=== PATIENT | male | born 1960 | race African-American/Black ===

== ENCOUNTER 2017-06-01 11:41 | Emergency (ER) | payer OTHER ==
[~2017-06-01] VITALS: Ht 182.9 cm; Wt 108.6 kg
[~2017-06-01 11:41] MED LIST: LOT105
[2017-06-01 11:51] VITALS: BP 137/94
== END 2017-06-01 16:00 | disposition left against medical advice (07) ==
LOC: ER 13:25
DX: Z53.21 Procedure and treatment not carried out due to patient leaving prior to being seen by health care provider (principal)

== ENCOUNTER 2019-11-09 21:58 | Inpatient (IN) | payer OTHER ==
[~2019-11-09] VITALS: Ht 182.9 cm; Wt 106.6 kg
[~2019-11-09 21:58] MED LIST changes: -LOT105; +LOT105 PO
[2019-11-09] MEDS ORDERED: DILTIAZEM HCL 5MG/ML 5ML VIAL IV ONE ×2 (22:15→22:17)
[2019-11-09] MEDS ORDERED: ASPIRIN 81MG TABLET PO ONE (22:15)
[2019-11-09 22:43] LABS: BASOPHILS % 0.5 % (0.0-2.0); EOSINOPHILS % 0.5 % (0.0-5.0); HEMATOCRIT. 42.4 % (42.0-52.0); HEMOGLOBIN. 14.7 g/dL (14.0-18.0); LYMPHOCYTES % 22.1 % (20.0-50.0); MEAN CORPUSCULAR HEMOGLOBIN 34.4 pg (28.0-32.0); MEAN CORPUSCULAR VOLUME 99.1 fL (80.0-94.0); MEAN PLATELET VOLUME 10.1 fl (7.4-10.4); NEUTROPHILS % 71.9 % (40.0-76.0); PLATELET 233 x1000/uL (130-400); RED BLOOD CELL COUNT 4.27 mill/uL (4.7-6.1); RED CELL DISTRIBUTION WIDTH 12.9 % (11.6-14.6)
[2019-11-09 22:50] LABS: CHLORIDE 102 mEq/L (98-107)
[2019-11-09 22:54] LABS: ETHANOL BLOOD 42 mg/dL
[2019-11-09 22:55] LABS: D-DIMER 2.4 mg/L FEU (<0.50); PARTIAL THROMBOPLASTIN TIME 22.9 sec (23.4-31.0); PROTHROMBIN TIME 10.7 sec (9.6-11.0)
[2019-11-09] MEDS ORDERED: NITROGLYCERIN OINT 1GM/INCH UDPKT TD ONE (23:30)
[2019-11-09] MEDS ORDERED: CEFTRIAXONE 1 G PREMIX 50 ML IV ONE (23:30)
[2019-11-09] MEDS ORDERED: FUROSEMIDE 40MG/4ML VIAL IV ONE (23:30)
[2019-11-09] MEDS ORDERED: POTASSIUM CHLORIDE 20MEQ TABLET SR PO ONE (23:30)
[2019-11-09] MEDS ORDERED: ENOXAPARIN 120MG/0.8ML SYR SUBCUT ONE (23:30)
[2019-11-09] MEDS ORDERED: AZITHROMYCIN 500 MG in DEXT 5% WATER 250 ML IV ONE (23:30)
[2019-11-10 00:14] LABS: CLARITY URINE CLEAR (CLEAR); COLOR URINE YELLOW (YELLOW); KETONES URINE NEGATIVE (NEGATIVE); LEUKOCYTE ESTERASE URINE NEGATIVE (NEGATIVE); NITRITE URINE NEGATIVE (NEGATIVE); OCCULT BLOOD URINE NEGATIVE (NEGATIVE); PH URINE 6.5 (4.5-8.0); PROTEIN URINE TRACE (NEGATIVE); SPECIFIC GRAVITY URINE 1.009 (1.005-1.030)
[2019-11-10 00:28] LABS: *AMPHETAMINES SCREEN URINE NEGATIVE (NEGATIVE); *BARBITURATES SCREEN URINE NEGATIVE (NEGATIVE); *BENZODIAZEPINES SCREEN URINE NEGATIVE (NEGATIVE); *COCAINE SCREEN URINE NEGATIVE (NEGATIVE); METHADONE URINE SCREEN NEGATIVE (NEGATIVE)
[2019-11-10 00:29] LABS: CANNABINOID URINE SCREEN NEGATIVE (NEGATIVE); OPIATES URINE SCREEN NEGATIVE (NEGATIVE); PHENCYCLIDINE URINE SCREEN NEGATIVE (NEGATIVE)
[2019-11-10] MEDS ORDERED: DILTIAZEM HCL 5MG/ML 5ML VIAL IV ONE (00:30)
[2019-11-10] MEDS ORDERED: DILTIAZEM HCL 60MG TABLET PO ONE (01:00)
[2019-11-10 05:30] VITALS: BP 135/90
[2019-11-10] MEDS ORDERED: IOHEXOL-350 100 ML BOTTLE ONE (05:50)
[2019-11-10] MEDS ORDERED: HYDR25TA PO (06:21)
[2019-11-10] MEDS ORDERED: POTA8CAP20 PO (06:21)
[2019-11-10] MEDS ORDERED: ASPI-1497 PO (06:21)
[2019-11-10 08:00] VITALS: BP 134/91
[2019-11-10] MEDS ORDERED: ONDANSETRON HCL 4MG/2ML INJ IV PRN (09:15)
[2019-11-10] MEDS ORDERED: ACETAMINOPHEN 325MG TABLET PO PRN (09:15)
[2019-11-10 10:53] LABS: CHLORIDE 103 mEq/L (98-107)
[2019-11-10 10:54] LABS: BASOPHILS % 0.4 % (0.0-2.0); EOSINOPHILS % 0.4 % (0.0-5.0); HEMOGLOBIN. 13.5 g/dL (14.0-18.0); LYMPHOCYTES % 23.1 % (20.0-50.0); MEAN CORPUSCULAR HEMOGLOBIN 34.5 pg (28.0-32.0); MEAN CORPUSCULAR VOLUME 99.6 fL (80.0-94.0); MEAN PLATELET VOLUME 9.6 fl (7.4-10.4); MONOCYTES % 7.1 % (2.0-8.0); PLATELET 221 x1000/uL (130-400); RED BLOOD CELL COUNT 3.92 mill/uL (4.7-6.1)
[2019-11-10] MEDS: AMLODIPINE 10MG TABLET PO SCH (11:23)
[2019-11-10 12:00] VITALS: BP 150/96
[2019-11-10] MEDS ORDERED: FUROSEMIDE 40MG/4ML VIAL IVP SCH (15:15)
[2019-11-10 16:00] VITALS: BP 151/64
[2019-11-10 20:00] VITALS: BP 145/104
[2019-11-10 20:44] LABS: CREATINE KINASE MB FRACTION 4.7 ng/mL (0.5-3.6)
[2019-11-10] MEDS: CEFTRIAXONE 1 G PREMIX 50 ML IV SCH (23:09)
[2019-11-10 23:58] LABS: CREATINE KINASE MB FRACTION 4.2 ng/mL (0.5-3.6)
[2019-11-11 00:06] VITALS: BP 133/82
[2019-11-11] MEDS: AZITHROMYCIN 500 MG in DEXT 5% WATER 250 ML IV SCH (02:03)
[2019-11-11 04:40] VITALS: BP 117/84
[2019-11-11 06:01] LABS: BASOPHILS % 0.2 % (0.0-2.0); EOSINOPHILS % 0.5 % (0.0-5.0); HEMATOCRIT. 38.5 % (42.0-52.0); HEMOGLOBIN. 13.2 g/dL (14.0-18.0); LYMPHOCYTES % 18.2 % (20.0-50.0); MEAN CORPUSCULAR HEMOGLOBIN 33.9 pg (28.0-32.0); MEAN CORPUSCULAR VOLUME 98.5 fL (80.0-94.0); MEAN PLATELET VOLUME 9.7 fl (7.4-10.4); MONOCYTES % 9.5 % (2.0-8.0); NEUTROPHILS % 71.6 % (40.0-76.0); PLATELET 206 x1000/uL (130-400); RED CELL DISTRIBUTION WIDTH 12.6 % (11.6-14.6)
[2019-11-11 06:19] LABS: CHLORIDE 103 mEq/L (98-107)
[2019-11-11 08:00] VITALS: BP_SYST 105; BP_SYST 133; BP_DIAS 79; BP_DIAS 90
[2019-11-11] MEDS: AMLODIPINE 10MG TABLET PO SCH (09:05)
[2019-11-11] MEDS ORDERED: POTASSIUM CHLORIDE 20MEQ TABLET SR PO NR (10:00)
[2019-11-11] MEDS ORDERED: FUROSEMIDE 40MG/4ML VIAL IVP NR (10:30)
[2019-11-11 12:00] VITALS: BP 128/86
[2019-11-11 16:00] VITALS: BP 127/76
[2019-11-11 20:00] VITALS: BP 139/88
[2019-11-11] MEDS ORDERED: DILTIAZEM HCL 5MG/ML 5ML VIAL IV PRN (20:30)
[2019-11-11] MEDS ORDERED: DILTIAZEM HCL 5MG/ML 5ML VIAL IV SCH (20:30)
[2019-11-11] MEDS ORDERED: DILTIAZEM HCL 30MG TABLET PO SCH (20:30)
[2019-11-11] MEDS: CEFTRIAXONE 1 G PREMIX 50 ML IV SCH (22:49)
[2019-11-12] VITALS (7 sets, daily range): BP systolic 20–118; BP diastolic 61–118
[2019-11-12] MEDS: DILTIAZEM HCL 30MG TABLET PO SCH ×4 (00:05→18:11)
[2019-11-12] MEDS: AZITHROMYCIN 500 MG in DEXT 5% WATER 250 ML IV SCH (01:59)
[2019-11-12] MEDS: AMLODIPINE 10MG TABLET PO SCH (09:00)
[2019-11-13] MEDS ORDERED: AZITHROMYCIN 500 MG TABLET PO SCH (09:00)
== END 2019-11-12 19:40 | disposition home or self-care (01) | DRG 871 ==
LOC: ER 21:58 → 7WST 11-10 00:08 → ENRESERV 11-10 04:45 → 7WST 11-10 05:54 → 6WST 11-10 21:30
PROVIDERS: ADMIT Internal Medicine; ATTEND Internal Medicine
DX: A41.9 Sepsis, unspecified organism (principal); I50.31 Acute diastolic (congestive) heart failure; J18.9 Pneumonia, unspecified organism; J96.01 Acute respiratory failure with hypoxia; I47.1 Supraventricular tachycardia; E87.2 Acidosis; I11.0 Hypertensive heart disease with heart failure; E87.6 Hypokalemia; I48.0 Paroxysmal atrial fibrillation; I70.0 Atherosclerosis of aorta; R65.20 Severe sepsis without septic shock; Y90.2 Blood alcohol level of 40-59 mg/100 ml; R74.0 Nonspecific elevation of levels of transaminase and lactic acid dehydrogenase [LDH]; Z20.828 Contact with and (suspected) exposure to other viral communicable diseases; Z78.9 Other specified health status; Z87.891 Personal history of nicotine dependence; Z79.899 Other long term (current) drug therapy
CPT/HCPCS: 36415; 71045; 71275; 80048; 80053; 80305; 80320; 81003; 82550; 82553; 83605; 83735; 83880; 84443; 84484; 85025; 85379; 93005; 93306; 93970; 99291; J0456; J0696; J1650; J1940; J3490; J7060; Q9967; G0480; U0003-CS

== ENCOUNTER 2019-12-31 02:41 | Inpatient (IN) | payer OTHER ==
[~2019-12-31] VITALS: Ht 180.3 cm; Wt 106.6 kg
[~2019-12-31 02:41] MED LIST changes: +ASPI-1497 PO; +HYDR25TA PO; +POTA8CAP20 PO
[2019-12-31] MEDS ORDERED: ONDANSETRON HCL 4MG/2ML INJ IV STA (02:51)
[2019-12-31] MEDS ORDERED: FUROSEMIDE 40MG/4ML VIAL IV ONE (03:00)
[2019-12-31] MEDS ORDERED: NITROGLYCERIN OINT 1GM/INCH UDPKT TD ONE (03:00)
[2019-12-31 03:14] LABS: BASOPHILS % 0.3 % (0.0-2.0); HEMOGLOBIN. 15.4 g/dL (14.0-18.0); MEAN CORPUSCULAR HEMOGLOBIN 33.6 pg (28.0-32.0); MEAN CORPUSCULAR VOLUME 98.3 fL (80.0-94.0); MEAN PLATELET VOLUME 9.4 fl (7.4-10.4); MONOCYTES % 6.3 % (2.0-8.0); NEUTROPHILS % 48.4 % (40.0-76.0); PLATELET 257 x1000/uL (130-400); RED BLOOD CELL COUNT 4.58 mill/uL (4.7-6.1)
[2019-12-31 03:17] LABS: CHLORIDE 105 mEq/L (98-107)
[2019-12-31 03:20] LABS: BG BASE EXCESS 2.7 mmol/L (-2.0-2.0); BG CARBOXYHEMOGLOBIN 0.6 % (0.5-1.5); BG DEOXYHEMOGLOBIN 11.7 % (0.0-5.0); BG FRACTION INSPIRED OXYGEN 100; BG HCO3 ACT 32.3 mmol/L (22.0-26.0); BG METHEMOGLOBIN 0.3 % (0.0-1.5); BG OXYGEN SATURATION 88.2 % (92.0-98.5); BG OXYHEMOGLOBIN 87.4 % (94.0-97.0); BG PCO2 71.9 mmHg (35.0-45.0); BG SAMPLE SITE RIGHT RADIAL; BG VENT MODE MASK - NRB
[2019-12-31] MEDS ORDERED: NITROGLYCERIN 50MG PREMIX 250 ML IV ONE (03:44)
[2019-12-31] MEDS ORDERED: ACETAMINOPHEN 325MG TABLET PO PRN (08:15)
[2019-12-31] MEDS ORDERED: CLONIDINE 0.1MG TABLET PO PRN (08:15)
[2019-12-31] MEDS ORDERED: ONDANSETRON HCL 4MG/2ML INJ IV PRN (08:15)
[2019-12-31] MEDS ORDERED: ENOXAPARIN 40MG/0.4ML SYR SUBCUT SCH (09:00)
[2019-12-31] MEDS: POTASSIUM CHLORIDE 20MEQ TABLET SR PO SCH (09:41)
[2019-12-31 12:43] LABS: BG BASE EXCESS 3.7 mmol/L (-2.0-2.0); BG CARBOXYHEMOGLOBIN 0.3 % (0.5-1.5); BG DEOXYHEMOGLOBIN 6.7 % (0.0-5.0); BG METHEMOGLOBIN 0.2 % (0.0-1.5); BG OXYGEN SATURATION 93.3 % (92.0-98.5); BG OXYHEMOGLOBIN 92.8 % (94.0-97.0); BG PCO2 46.4 mmHg (35.0-45.0); BG PH 7.414 (7.350-7.450); BG PO2 69.3 mmHg (75.0-100.0); BG SAMPLE SITE RIGHT RADIAL; BG TOTAL HEMOGLOBIN 14.3 g/dL (12.0-18.0); BG VENT MODE NASAL CANNULA
[2019-12-31 17:30] VITALS: BP 165/110
[2019-12-31 17:41] LABS: CREATINE KINASE MB FRACTION 3.5 ng/mL (0.5-3.6)
[2019-12-31] MEDS ORDERED: FURO-152 MT (17:54)
[2019-12-31] MEDS ORDERED: POTA-9 MT (17:54)
[2019-12-31] MEDS ORDERED: DILT120T13 MT (17:54)
[2019-12-31] MEDS: FUROSEMIDE 40MG/4ML VIAL IVP SCH (18:11)
[2019-12-31 18:30] VITALS: BP 150/90
[2019-12-31 20:00] VITALS: BP 146/83
[2019-12-31] MEDS: LOSARTAN POTASSIUM 50 MG TABLET PO SCH (20:22)
[2019-12-31] MEDS: ENOXAPARIN 30MG/0.3ML SYR SUBCUT SCH (20:24)
[2020-01-01 00:20] VITALS: BP 135/86
[2020-01-01 04:00] VITALS: BP 124/87
[2020-01-01 05:54] LABS: BASOPHILS % 0.3 % (0.0-2.0); HEMATOCRIT. 37.6 % (42.0-52.0); HEMOGLOBIN. 12.9 g/dL (14.0-18.0); LYMPHOCYTES % 24.5 % (20.0-50.0); MEAN CORPUSCULAR HEMOGLOBIN 33.7 pg (28.0-32.0); MEAN CORPUSCULAR VOLUME 98.3 fL (80.0-94.0); MEAN PLATELET VOLUME 9.9 fl (7.4-10.4); MONOCYTES % 8.4 % (2.0-8.0); NEUTROPHILS % 65.8 % (40.0-76.0); PLATELET 176 x1000/uL (130-400); RED BLOOD CELL COUNT 3.83 mill/uL (4.7-6.1)
[2020-01-01] MEDS: FUROSEMIDE 40MG/4ML VIAL IVP SCH ×2 (06:17→17:46)
[2020-01-01 06:43] LABS: HEPATITIS B SURFACE ANTIGEN NEGATIVE
[2020-01-01 07:13] LABS: HEPATITIS A AB IGM NEGATIVE (NEGATIVE)
[2020-01-01 07:16] LABS: CHLORIDE 104 mEq/L (98-107)
[2020-01-01 08:00] VITALS: BP 110/81
[2020-01-01] MEDS: LOSARTAN POTASSIUM 50 MG TABLET PO SCH (08:43)
[2020-01-01] MEDS: POTASSIUM CHLORIDE 20MEQ TABLET SR PO SCH (08:43)
[2020-01-01] MEDS: ASPIRIN 81MG EC TABLET PO SCH (08:43)
[2020-01-01] MEDS: ENOXAPARIN 30MG/0.3ML SYR SUBCUT SCH ×3 (08:47→21:05)
[2020-01-01 09:21] LABS: BG BASE EXCESS 4.7 mmol/L (-2.0-2.0); BG CARBOXYHEMOGLOBIN 0.7 % (0.5-1.5); BG DEOXYHEMOGLOBIN 4.2 % (0.0-5.0); BG FRACTION INSPIRED OXYGEN 21; BG HCO3 ACT 27.8 mmol/L (22.0-26.0); BG METHEMOGLOBIN 0.1 % (0.0-1.5); BG OXYGEN SATURATION 95.8 % (92.0-98.5); BG PCO2 36.3 mmHg (35.0-45.0); BG PH 7.502 (7.350-7.450); BG PO2 75.5 mmHg (75.0-100.0); BG SAMPLE SITE RIGHT BRACHIAL; BG TOTAL HEMOGLOBIN 14.5 g/dL (12.0-18.0); BG VENT MODE ROOM AIR
[2020-01-01 12:00] VITALS: BP 105/78
[2020-01-01 15:49] VITALS: BP 128/91
[2020-01-01 20:40] VITALS: BP 132/88
[2020-01-02 00:26] VITALS: BP 116/87
[2020-01-02 04:00] VITALS: BP 122/90
[2020-01-02] MEDS: FUROSEMIDE 40MG/4ML VIAL IVP SCH (05:57)
[2020-01-02 07:34] LABS: BASOPHILS % 0.2 % (0.0-2.0); EOSINOPHILS % 1.4 % (0.0-5.0); HEMATOCRIT. 38.3 % (42.0-52.0); LYMPHOCYTES % 30.4 % (20.0-50.0); MEAN CORPUSCULAR HEMOGLOBIN 33.4 pg (28.0-32.0); MEAN CORPUSCULAR VOLUME 98.6 fL (80.0-94.0); MONOCYTES % 9.3 % (2.0-8.0); NEUTROPHILS % 58.7 % (40.0-76.0); PLATELET 190 x1000/uL (130-400); RED BLOOD CELL COUNT 3.89 mill/uL (4.7-6.1); RED CELL DISTRIBUTION WIDTH 13.1 % (11.6-14.6)
[2020-01-02 08:06] VITALS: BP 125/82
[2020-01-02 08:15] LABS: CHLORIDE 103 mEq/L (98-107)
[2020-01-02] MEDS: ASPIRIN 81MG EC TABLET PO SCH (09:00)
[2020-01-02] MEDS: POTASSIUM CHLORIDE 20MEQ TABLET SR PO SCH (09:00)
[2020-01-02] MEDS: LOSARTAN POTASSIUM 50 MG TABLET PO SCH (09:01)
[2020-01-02] MEDS: ENOXAPARIN 30MG/0.3ML SYR SUBCUT SCH (09:01)
[2020-01-02 10:37] VITALS: BP 125/82
== END 2020-01-02 11:15 | disposition home or self-care (01) | DRG 291 ==
LOC: ER 02:41 → 6WST 04:17 → EDBEDREQTM 04:37 → EDBEDREQSVC 04:37 → EDBEDREQ 04:37 → EDBEDREQSVC 13:20 → CANRESERV 14:08 → ENRESERV 14:08
PROVIDERS: ADMIT Internal Medicine; ATTEND Internal Medicine
PROC: 5A09357 Assistance with Respiratory Ventilation, Less than 24 Consecutive Hours, Continuous Positive Airway Pressure (ICD-10-PCS; principal; 2019-12-31)
DX: I11.0 Hypertensive heart disease with heart failure (principal); J96.02 Acute respiratory failure with hypercapnia; J18.9 Pneumonia, unspecified organism; J96.01 Acute respiratory failure with hypoxia; E87.2 Acidosis; I47.1 Supraventricular tachycardia; Z20.828 Contact with and (suspected) exposure to other viral communicable diseases; E66.9 Obesity, unspecified; J44.9 Chronic obstructive pulmonary disease, unspecified; I27.20 Pulmonary hypertension, unspecified; E78.5 Hyperlipidemia, unspecified; K76.0 Fatty (change of) liver, not elsewhere classified; Z79.82 Long term (current) use of aspirin; Z79.899 Other long term (current) drug therapy; Z87.891 Personal history of nicotine dependence; Z68.32 Body mass index [BMI] 32.0-32.9, adult; I50.33 Acute on chronic diastolic (congestive) heart failure
CPT/HCPCS: 36415; 36600; 71045; 76700; 80048; 80053; 82375; 82550; 82553; 82805; 83605; 83880; 84145; 84484; 85025; 86705; 86709; 86803; 87340; 87426; 93005; 93970; 94660; 96374; 99291; J1650; J1940; J2405

== ENCOUNTER 2025-03-25 14:35 | Inpatient (IN) | payer OTHER ==
[~2025-03-25] VITALS: Ht 180.3 cm; Wt 119.3 kg
[~2025-03-25 14:35] MED LIST changes: -HYDR25TA PO; -LOT105 PO; +POTA-202 MT; -POTA8CAP20 PO
[2025-03-25 14:44] VITALS: O2SAT 98
[2025-03-25] MEDS ORDERED: DILTIAZEM HCL 125 MG in DEXT 5% WATER 100 ML IV ONE (15:15)
[2025-03-25 16:01] LABS: BASOPHILS % 0.2 % (0.0-2.0); EOSINOPHILS % 0.4 % (0.0-5.0); HEMATOCRIT. 43.6 % (42.0-52.0); HEMOGLOBIN. 14.7 g/dL (14.0-18.0); LYMPHOCYTES % 14.4 % (20.0-50.0); MEAN PLATELET VOLUME 8.8 fl (7.4-10.4); MONOCYTES % 7.3 % (2.0-8.0); NEUTROPHILS % 77.7 % (40.0-76.0); PLATELET 172 x1000/uL (130-400); RED BLOOD CELL COUNT 4.00 mill/uL (4.7-6.1); RED CELL DISTRIBUTION WIDTH 13.9 % (11.6-14.6)
[2025-03-25] MEDS: DILTIAZEM HCL 5MG/ML 5ML VIAL IV ONE (16:02)
[2025-03-25] MEDS: FUROSEMIDE 40MG/4ML VIAL IV ONE (16:02)
[2025-03-25 16:08] LABS: INR 1.3
[2025-03-25 16:10] LABS: CREATININE 1.2 mg/dL (0.6-1.3); UREA NITROGEN BLOOD 8 mg/dL (9-23)
[2025-03-25 16:12] LABS: ASPARTATE AMINOTRANSFERASE 32 IU/L (<34); BILIRUBIN DIRECT 1.0 mg/dL (<=3.0)
[2025-03-25 16:13] LABS: BILIRUBIN TOTAL 2.8 mg/dL (0.1-1.0); PROTEIN TOTAL 7.1 g/dL (6.0-8.3)
[2025-03-25] MEDS: DILTIAZEM HCL 125 MG in DEXT 5% WATER 100 ML IV NR (16:29)
[2025-03-25 16:31] LABS: TROPONIN I HIGH SENSITIVITY 90 ng/L (3.0-53)
[2025-03-25] MEDS ORDERED: MAGNESIUM/ALUMINUM HYDROXIDE/SIMETHICONE 30ML UDC PO PRN (17:30)
[2025-03-25] MEDS ORDERED: ACETAMINOPHEN 325MG TABLET PO PRN (17:30)
[2025-03-25] MEDS ORDERED: MORPHINE SULFATE 2 MG/ML INJ (NOT FOR IM USE) IV PRN (17:30)
[2025-03-25] MEDS ORDERED: ONDANSETRON HCL 4MG/2ML INJ IV PRN (17:30)
[2025-03-25] MEDS ORDERED: HYDROCODONE/ACETAMINOPHEN 5/325MG TABLET PO PRN (17:30)
[2025-03-25] MEDS ORDERED: CLONIDINE 0.1MG TABLET PO PRN (17:30)
[2025-03-25] MEDS ORDERED: ZOLPIDEM TARTRATE 5MG TABLET PO PRN (20:00)
[2025-03-25 21:09] LABS: *AMPHETAMINES SCREEN URINE NEGATIVE (NEGATIVE); *BARBITURATES SCREEN URINE NEGATIVE (NEGATIVE); *BENZODIAZEPINES SCREEN URINE NEGATIVE (NEGATIVE); *COCAINE SCREEN URINE NEGATIVE (NEGATIVE); CANNABINOID URINE SCREEN NEGATIVE (NEGATIVE); ECSTASY MDMA SCREEN URINE NEGATIVE (NEGATIVE); METHADONE URINE SCREEN NEGATIVE (NEGATIVE); OPIATES URINE SCREEN NEGATIVE (NEGATIVE); PHENCYCLIDINE URINE SCREEN NEGATIVE (NEGATIVE)
[2025-03-25 21:12] LABS: CLARITY URINE CLEAR (CLEAR); COLOR URINE YELLOW (YELLOW); GLUCOSE URINE NEGATIVE (NEGATIVE); KETONES URINE NEGATIVE (NEGATIVE); LEUKOCYTE ESTERASE URINE NEGATIVE (NEGATIVE); NITRITE URINE NEGATIVE (NEGATIVE); OCCULT BLOOD URINE NEGATIVE (NEGATIVE); PH URINE 8.0 (4.5-8.0); PROTEIN URINE NEGATIVE (NEGATIVE); SPECIFIC GRAVITY URINE 1.006 (1.005-1.030); UROBILINOGEN URINE 1.0 E.U./dL (0.2-1.0)
[2025-03-25 21:36] LABS: TROPONIN I HIGH SENSITIVITY 100 ng/L (3.0-53)
[2025-03-25 21:40] VITALS: BP 123/96; PULSE 98; RESP 27; TEMP 36.974
[2025-03-25 22:00] VITALS: BP 127/91; PULSE 102; RESP 19
[2025-03-26] VITALS (13 sets, daily range): BP systolic 94–137; BP diastolic 81–116; PULSE 86–149; RESP 13–20; TEMP 36.5–37.6; O2SAT 92–99
[2025-03-26] MEDS: ENOXAPARIN 120MG/0.8ML SYR SUBCUT SCH ×2 (05:46→17:06)
[2025-03-26 07:30] LABS: BASOPHILS % 0.4 % (0.0-2.0); EOSINOPHILS % 1.1 % (0.0-5.0); HEMATOCRIT. 43.5 % (42.0-52.0); HEMOGLOBIN. 14.5 g/dL (14.0-18.0); LYMPHOCYTES % 22.6 % (20.0-50.0); MEAN PLATELET VOLUME 9.1 fl (7.4-10.4); MONOCYTES % 10.0 % (2.0-8.0); NEUTROPHILS % 65.9 % (40.0-76.0); PLATELET 163 x1000/uL (130-400); RED BLOOD CELL COUNT 3.97 mill/uL (4.7-6.1); RED CELL DISTRIBUTION WIDTH 14.0 % (11.6-14.6)
[2025-03-26 07:57] LABS: CREATININE 1.1 mg/dL (0.6-1.3); UREA NITROGEN BLOOD 7 mg/dL (9-23)
[2025-03-26 08:04] LABS: TROPONIN I HIGH SENSITIVITY 90 ng/L (3.0-53)
[2025-03-26] MEDS ORDERED: NALOXONE HCL 0.4MG/ML VIAL IV PRN (10:45)
[2025-03-26] MEDS: POTASSIUM CHLORIDE 20MEQ TABLET SR PO NR (11:22)
[2025-03-26] MEDS: DILTIAZEM HCL 30MG TABLET PO SCH (11:22)
[2025-03-26] MEDS: PANTOPRAZOLE SODIUM 40 MG/VIAL IV SCH (11:22)
[2025-03-26] MEDS: FUROSEMIDE 40MG/4ML VIAL IVP SCH (11:22)
[2025-03-26] MEDS: METOPROLOL TARTRATE 5MG/5ML VIAL IV SCH (15:12)
[2025-03-26] MEDS: MAGNESIUM 2 G PREMIX 50 ML IV NR (15:13)
[2025-03-26] MEDS: MAGNESIUM OXIDE 400MG TABLET PO SCH (15:13)
[2025-03-26] MEDS: FUROSEMIDE 100MG/10ML VIAL IVP SCH (17:05)
[2025-03-26] MEDS: LORAZEPAM 2MG/ML UD SYRINGE IV PRN (18:35)
[2025-03-26 19:35] LABS: TROPONIN I HIGH SENSITIVITY 76 ng/L (3.0-53)
[2025-03-27] VITALS (12 sets, daily range): BP systolic 109–144; BP diastolic 89–134; PULSE 106–140; RESP 14–26; TEMP 36.2–36.8; O2SAT 96–99
[2025-03-27] MEDS: METOPROLOL TARTRATE 5MG/5ML VIAL IV PRN (02:07)
[2025-03-27 06:03] LABS: CREATININE 1.3 mg/dL (0.6-1.3)
[2025-03-27 06:04] LABS: UREA NITROGEN BLOOD 13 mg/dL (9-23)
[2025-03-27 06:05] LABS: TROPONIN I HIGH SENSITIVITY 79 ng/L (3.0-53)
[2025-03-27 06:45] LABS: BASOPHILS % 0.2 % (0.0-2.0); EOSINOPHILS % 0.7 % (0.0-5.0); HEMATOCRIT. 45.5 % (42.0-52.0); HEMOGLOBIN. 15.1 g/dL (14.0-18.0); LYMPHOCYTES % 19.6 % (20.0-50.0); MEAN PLATELET VOLUME 9.4 fl (7.4-10.4); MONOCYTES % 8.1 % (2.0-8.0); NEUTROPHILS % 71.4 % (40.0-76.0); PLATELET 179 x1000/uL (130-400); RED BLOOD CELL COUNT 4.14 mill/uL (4.7-6.1); RED CELL DISTRIBUTION WIDTH 14.1 % (11.6-14.6)
[2025-03-27] MEDS: CARVEDILOL 3.125 MG TABLET PO SCH ×2 (15:40→20:36)
[2025-03-27] MEDS: METOPROLOL TARTRATE 25MG TABLET PO SCH (20:35)
[2025-03-27] MEDS ORDERED: DILTIAZEM HCL 60MG TABLET PO SCH (22:00)
[2025-03-28] VITALS: BP 125/98; PULSE 110; RESP 22; TEMP 36.4; O2SAT 96
[2025-03-28 03:52] VITALS: BP 123/105; PULSE 120; RESP 16; TEMP 36.7; O2SAT 95
[2025-03-28] MEDS ORDERED: METO25TA6 MT (04:17)
[2025-03-28 06:57] LABS: BASOPHILS % 0.5 % (0.0-2.0); EOSINOPHILS % 1.1 % (0.0-5.0); HEMATOCRIT. 44.8 % (42.0-52.0); HEMOGLOBIN. 15.0 g/dL (14.0-18.0); LYMPHOCYTES % 22.7 % (20.0-50.0); MEAN PLATELET VOLUME 8.8 fl (7.4-10.4); MONOCYTES % 10.0 % (2.0-8.0); NEUTROPHILS % 65.7 % (40.0-76.0); PLATELET 172 x1000/uL (130-400); RED BLOOD CELL COUNT 4.02 mill/uL (4.7-6.1); RED CELL DISTRIBUTION WIDTH 14.4 % (11.6-14.6)
[2025-03-28 07:01] LABS: ADD RBC MORPHOLOGY YES
[2025-03-28 07:02] LABS: CREATININE 1.2 mg/dL (0.6-1.3); UREA NITROGEN BLOOD 12 mg/dL (9-23)
[2025-03-28 08:00] VITALS: BP 119/109; PULSE 105; RESP 19; TEMP 36.8; O2SAT 96
[2025-03-28 12:00] VITALS: BP 117/90; PULSE 106; RESP 19; TEMP 36.7; O2SAT 96
[2025-03-28] MEDS ORDERED: FURO-151 MT (14:05)
[2025-03-28] MEDS ORDERED: COR3 PO (14:05)
[2025-03-28] MEDS ORDERED: POTA-204 PO (14:05)
[2025-03-28] MEDS ORDERED: ISOS1TAB2 MT (14:05)
[2025-03-28] MEDS ORDERED: DILT60TA4 PO (14:05)
[2025-03-28] MEDS ORDERED: EMPA10TA MT (14:05)
[2025-03-28] MEDS ORDERED: LISI10TA26 MT (14:05)
[2025-03-28] MEDS ORDERED: APIX5TAB MT (14:06)
[2025-03-28 15:12] VITALS: BP 117/90; PULSE 106; RESP 19; TEMP 98.1
[2025-03-28] MEDS: POTASSIUM CHLORIDE 20MEQ TABLET SR PO SCH (15:38)
[2025-03-28 21:20] LABS: PLATELET ESTIMATE NORMAL
== END 2025-03-28 16:02 | disposition home or self-care (01) | DRG 201 ==
LOC: ER 15:07 → 5EST 16:50 → EDBEDREQ 16:53 → EDBEDREQTM 16:53 → EDBEDREQSVC 16:53 → ENRESERV 20:18
PROVIDERS: ADMIT Internal Medicine; ATTEND Internal Medicine
DX: I48.91 Unspecified atrial fibrillation (principal); J96.91 Respiratory failure, unspecified with hypoxia; I50.41 Acute combined systolic (congestive) and diastolic (congestive) heart failure; I11.0 Hypertensive heart disease with heart failure; I27.20 Pulmonary hypertension, unspecified; E66.9 Obesity, unspecified; I08.1 Rheumatic disorders of both mitral and tricuspid valves; I47.10 Supraventricular tachycardia, unspecified; D68.69 Other thrombophilia; I42.9 Cardiomyopathy, unspecified; E87.6 Hypokalemia; E83.42 Hypomagnesemia; G47.33 Obstructive sleep apnea (adult) (pediatric); I49.3 Ventricular premature depolarization; Z79.899 Other long term (current) drug therapy; Z79.82 Long term (current) use of aspirin; Z91.148 Patient's other noncompliance with medication regimen for other reason; Z87.891 Personal history of nicotine dependence
CPT/HCPCS: 36415; 71045; 80048; 80076; 80305; 81003; 83735; 83880; 84443; 84484; 85025; 93005; 93306; 96365; 96375; 99291; A4606; J1650; J1938; J2060; J2470; J3475; J3490; J7060